=== PATIENT | female | born 1965 | race Caucasian/White ===

== ENCOUNTER → 2018-09-04 | Outpatient (CLI) | payer OTHER | LOC: FIMAGING 08:19 | PROVIDERS: ATTEND Internal Medicine Endocrinology, Diabetes & Metabolism | DX: E21.3 Hyperparathyroidism, unspecified (principal); R93.89 Abnormal findings on diagnostic imaging of other specified body structures | CPT/HCPCS: 78070; A9500; A9516 ==

== ENCOUNTER → 2018-09-18 | Outpatient (CLI) | payer OTHER | LOC: FIMAGING 09:42 | PROVIDERS: ATTEND Otolaryngology | DX: E21.3 Hyperparathyroidism, unspecified (principal); E04.2 Nontoxic multinodular goiter ==

== ENCOUNTER 2018-10-09 11:13 | Observation (INO) | payer OTHER ==
[2018-10-09] MEDS ORDERED: ceFAZolin 2 GM/DEXTROSE 100 ML IV ONE (11:34)
[2018-10-09] MEDS ORDERED: LR 1,000 ML IV ONE (11:35)
[2018-10-09] MEDS ORDERED: LIDO/EPI 2% **for epidural** 20 ML SDV ONE (11:43)
--- NOTE | 2018-10-09 12:06 | PDANEPAE ---
ANE History of Present Illness primary hyperparathyroidism ANE Past Medical History - Cardiovascular History Hx Hypertension: Yes Hx Arrhythmias: No Hx Chest Pain: No Hx Coronary Artery / Peripheral Vascular Disease: No Hx CHF / Valvular Disease: No Hx Palpitations: No Cardiovascular History Comment: pcp monitors bp medications - Pulmonary History Hx COPD: No Hx Asthma/Reactive Airway Disease: No Hx Recent Upper Respiratory Infection: No Hx Oxygen in Use at Home: No Hx Sleep Apnea: No Sleep Apnea Screening Result - Last Documented: Negative Pulmonary History Comment: occ difficulty catching breath with anxiety. suspected SCOOBY - Neurologic History Hx Cerebrovascular Accident: No Hx Seizures: No Hx Dementia: No - Endocrine History Hx Diabetes: Yes Hypothyroid: No Hyperthyroid: No Obesity: severe Endocrine History Comment: borderline last labs in june, using diet and exercise before medications - Renal History Hx Renal Disorders: Yes Renal History Comment: occ dribbling - Liver History Hx Hepatic Disorders: No - Neurological & Psychiatric Hx Hx Neurological and Psychiatric Disorders: Yes Neurological / Psychiatric History Comment: anxiety. lost partner 2 years ago, some situational depression - Cancer History Hx Cancer: No - Congenital Disorder History Hx Congenital Disorders: No - GI History GERD: mild Hx Gastrointestinal Disorders: Yes Gastrointestinal History Comment: reflux- uses protonix - Other Health History Other Health History: wears glasses. bilateral hearing aides- unable to hear without aides - meniere's disease. very dry skin - Chronic Pain History Chronic Pain: No - Surgical History Prior Surgeries: tonsillectomy at 22 yo. endolymphatic shunt 2003. oophorectomy 2014 at [facility] Review of Systems Review of Systems: - Exercise capacity Exercise capacity: >=4 METS METS (RN): 4 METS ANE Patient History - Allergies Allergies/Adverse Reactions: Sulfa (Sulfonamide Antibiotics) Allergy (Verified 10/03/18 12:15) makes her really itchy - Home Medications Home Medications: Lisinopril 02/25/15 [Last Taken 10/08/18] Protonix 02/25/15 [Last Taken 10/08/18] Aspirin 81mg (*) 10/03/18 [Last Taken 09/30/18] Herbals/Supplements -Info Only 10/03/18 [Last Taken 10/03/18] - Anes Hx Anes Hx: no prior problems - Smoking Hx Smoking Status: Never smoked - Family Anes Hx Family Hx Anesthesia Complications: none ANE Labs/Vital Signs - Vital Signs Height: 175.26 cm Weight: 129.274 kg ANE Physical Exam - Airway Neck exam: FROM Mallampati Score: Class 2 Mouth exam: normal dental/mouth exam - Pulmonary Pulmonary: no respiratory distress - Cardiovascular Cardiovascular: regular rate and rhythym - ASA Status ASA Status: III ANE Anesthesia Plan Anesthesia Plan: general endotracheal anesthesia
[2018-10-09] MEDS ORDERED: fentaNYL 100 MCG/2 ML INJ ONE ×2 (12:07→15:34)
[2018-10-09] MEDS ORDERED: DEXAMETHASONE 4 MG/ML VIAL ONE ×2 (12:07)
[2018-10-09] MEDS ORDERED: ONDANSETRON 4 MG/2 ML VIAL ONE (12:07)
[2018-10-09] MEDS ORDERED: ROCURONIUM 50 MG/5 ML VIAL ONE (12:07)
[2018-10-09] MEDS ORDERED: PROPOFOL 200 MG/20 ML VIAL ONE (12:07)
[2018-10-09] MEDS ORDERED: LIDOCAINE 2% 2 ML INJ ONE ×3 (12:08)
[2018-10-09] MEDS ORDERED: MIDAZOLAM 2 MG/2 ML VIAL ONE (12:19)
--- NOTE | 2018-10-09 12:31 | PDHPUP ---
History & Physical Update H&P update statement: This history and physical update is based on an assessment of the patient which was completed after admission or registration (within 24 hours), but prior to the surgery/procedure. H&P update: no change in patient's condition since H&P completed (no changes. Presurgery clearance performed by PCP)
[2018-10-09] MEDS ORDERED: GLYCOPYRROLATE 0.2 MG/1 ML VIAL ONE ×2 (14:41)
[2018-10-09] MEDS ORDERED: NEOSTIGMINE METHYLSULFATE 5 MG/5 ML SYR ONE (14:41)
[2018-10-09] MEDS ORDERED: ONDANSETRON 4 MG/2 ML VIAL IVP PRN (14:52)
[2018-10-09] MEDS ORDERED: ACETAMINOPHEN 160 MG/5 ML UDCUP PO PRN (14:56)
[2018-10-09] MEDS ORDERED: OXYCODONE/APAP 5/325 TAB PO PRN (14:56)
[2018-10-09] MEDS ORDERED: D5W 1/2 NS W/ 20 KCl/L 1,000 ML IV SCH (15:00)
[2018-10-09] MEDS ORDERED: METOCLOPRAMIDE 10 MG/2 ML VIAL IVP PRN (15:11)
[2018-10-09] MEDS ORDERED: oxyCODONE IR 5 MG TAB PO PRN (15:11)
[2018-10-09] MEDS ORDERED: fentaNYL 100 MCG/2 ML INJ IVP PRN (15:11)
[2018-10-09] MEDS ORDERED: ACETAMINOPHEN 500 MG TAB PO PRN (15:11)
[2018-10-09] MEDS ORDERED: NALOXONE HCL 0.4 MG/ML INJ IVP PRN (15:11)
[2018-10-09] MEDS ORDERED: LABETALOL HCL 20 MG/4 ML INJ IVP PRN (15:11)
[2018-10-09] MEDS ORDERED: HYDROmorphONE/DILAUDID 2 MG/ML INJ IVP PRN (15:11)
[2018-10-09] MEDS ORDERED: LR 500 ML IV PRN (15:11)
[2018-10-09] MEDS ORDERED: ALBUTEROL 3 ML DEYVIAL IH PRN (15:11)
[2018-10-09] MEDS ORDERED: MEPERIDINE 25 MG/0.5 ML AMP IVP PRN (15:11)
--- NOTE | 2018-10-09 15:13 | POSTANESTH ---
Post Anesthetic Evaluation Cardiovascular Status: Normal, Stable Respiratory Status: Normal, Stable Level of Consciousness/Mental Status: Can Participate in Eval Pain Control: Adequate, Prn Tx Ordered Nausea/Vomiting Control: Adequate, Prn Tx Ordered Complications Possibly Related to Anesthesia: None Noted
[2018-10-09] MEDS: CALCIUM CARBONATE 500 MG TAB PO SCH (21:21)
[2018-10-10] MEDS ORDERED: PANTOPRAZOLE SODIUM 40 MG TAB PO SCH (09:00)
[2018-10-10] MEDS: CALCIUM CARBONATE 500 MG TAB PO SCH (09:32)
[2018-10-10 12:05] VITALS: BP 108/65
--- NOTE | 2018-10-10 12:06 | SOAPPROG ---
SOAP Progress Note Assessment/Plan: Assessment: POD 1 L parathyroidectomy. Frozen showed > 2gm hypercellular PT. PTH dropped from 267 to 59 though this am up to 100. Ca down in the 9s now from 11. D/c home, will recheck PTH/Ca in a week. Given signs/sxs of what to call for Plan: 10/10/18 12:05 Subjective: Pt did well overnight. No sig issues. swallowing well, voice good. [place] like had some tingling in R hand, though Ca was normal at the time. None now Objective: AFVSS RA neck flat, dressing in place voice strong Vital Signs Temp Pulse Resp BP Pulse Ox 37.0 C 71 16 108/65 94 10/10/18 12:00 10/10/18 12:00 10/10/18 12:00 10/10/18 12:00 10/10/18 12:00 10/09/18 10/10/18 10/11/18 05:59 05:59 05:59 Intake Total 1974 Balance 1974 ICD10 Worksheet Patient Problems: Problems Problem Status Onset Hyperparathyroidism Acute - ICD10 Problem Qualifiers (1) Hyperparathyroidism
--- NOTE | 2018-10-16 08:01 | GOP ---
DATE OF CONSULTATION: 10/09/2018 PREOPERATIVE DIAGNOSIS: Primary hyperparathyroidism. POSTOPERATIVE DIAGNOSIS: Primary hyperparathyroidism. PROCEDURES: 1. Left lower parathyroidectomy. 2. Recurrent laryngeal nerve monitoring using the NIM [employer] system. [employer] TECHNICIAN SURGEON: Pavel Faye MD ANESTHESIA: General. COMPLICATIONS: None. BLOOD LOSS: Minimal. FINDINGS: The patient was found to have a very large left lower lobe parathyroid that was easily found. Frozen section showed hypercellular parathyroid tissue, weight 2999 mg and the PTH dropped from 267 preoperatively to 59 intraoperatively 10 minutes after removal of the parathyroid. There were no complications. PREOPERATIVE NOTE: The patient is a very pleasant 53-year-old woman who has a history of primary hyperparathyroidism with a calcium of 11 and a PTH in the 200s. She localized to the left lower parathyroid on sestamibi as well as ultrasound and it is felt she would benefit from the above procedure. DESCRIPTION OF PROCEDURE: The patient was first seen in the preoperative area where informed consent was obtained. She was then brought back to the operating room where anesthesia sedated and intubated her using the NIM tube. The bed was turned 180 degrees and a shoulder roll was placed. The NIM tube was set up and confirmed to be tracking both recurrent laryngeal nerves. At this point a universal time-out protocol was performed confirming the patient and procedure. She was then prepped and draped in a sterile fashion. About 6 cc of 1% lidocaine with 1:100,000 epinephrine was injected into a 2.5 cm incision in the neck in between the sternal notch and the cricoid. Once this had sufficient time to act, a 15-blade was used to make an incision through the skin and subcutaneous tissue. I defatted an area above the platysma. This was sent off the field. The platysma was then divided and its subplatysmal flaps were elevated superiorly and inferiorly and then a Weitlaner retractor was used to give exposure. At this point the strap musculature was divided in the midline raphe and then we initially released the strap muscular off the underlying thyroid tissue on the left and then retracted it laterally. At this point, we started elevating the thyroid tissue up and with blunt digital palpation I was able to palpate an area that felt suspicious for the parathyroid , so at this point, some sharp dissection using the Burlisher was used to dissect this out. This was noted to be in the position of the lower left parathyroid. This was completely dissected out until it was removed from the field. It was a fairly big adenomatous-looking tissue. This was sent off the field for frozen section. Her preoperative PTH in the preop area was 267. We irving PTH 10 minutes after removal of the left-sided parathyroid adenoma. This dropped down to 59. At this point, it was felt that this was the offending adenoma. While waiting for the rapid PTH levels, we had done some gentle dissection along the left side but not noticed anything else abnormal. Once this gave back to within the normal range and over a 50% drop, we cauterized any small bleeders using bipolar cautery. The strap musculature was closed using 3-0 Vicryl in interrupted fashion. The subcutaneous tissues were closed using 3-0 Vicryl as well, and then a 4-0 Monocryl in a running subcuticular fashion was used to close the skin. At this point, the skin edges were cleaned , dried, and then Mastisol was placed over each side and then Steri-Strips were placed over this. At this point, the patient was turned back over to Anesthesia where she was awakened and extubated and taken to the PACU in stable condition. There were no complications, and she tolerated the procedure well. /[id number]/MODL MTDD
== END 2018-10-10 13:29 | disposition home or self-care (01) ==
LOC: FSGY 11:13 → F3E 16:35
PROVIDERS: ADMIT Otolaryngology; ATTEND Otolaryngology
DX: E21.3 Hyperparathyroidism, unspecified (principal); D35.1 Benign neoplasm of parathyroid gland; E11.9 Type 2 diabetes mellitus without complications; I10 Essential (primary) hypertension; D50.9 Iron deficiency anemia, unspecified; E55.9 Vitamin D deficiency, unspecified; E66.9 Obesity, unspecified; Z68.41 Body mass index [BMI] 40.0-44.9, adult; Z82.49 Family history of ischemic heart disease and other diseases of the circulatory system
CPT/HCPCS: 60500; G0378; J0690; J1100; J2250; J2270; J2405; J2704; J2710; J3010